=== PATIENT | male | born 1945 | race Two or more races ===

== ENCOUNTER 2023-07-19 22:01 | Inpatient (IN) | payer MEDICARE ==
[~2023-07-19] VITALS: Ht 162.6 cm; Wt 56.8 kg
[2023-07-19 23:08] VITALS: BP 137/92; TEMP 98.6; O2SAT 97
[2023-07-20] MEDS ORDERED: Z GUARD REMEDY 4 OZ OINT TP PRN (00:30)
[2023-07-20] MEDS ORDERED: ONDANSETRON HCL/PF 4 MG/2 ML VIAL IVP PRN (00:30)
[2023-07-20 00:44] VITALS: BP 137/92; TEMP 98.6; O2SAT 97
[2023-07-20] MEDS: IV NS 0.9% 1,000 ML IV PRN (00:54)
[2023-07-20] MEDS: MORPHINE SULFATE INJ 2 MG/ML DISP.SYRIN IV PRN (01:07)
[2023-07-20] MEDS ORDERED: ENAL10TA39 PO (01:22)
[2023-07-20] MEDS ORDERED: HYDR12.55 PO (01:22)
[2023-07-20 07:01] LABS: BASOPHILS # (AUTO) 0.1 K/uL (0.0-0.2); BASOPHILS % (AUTO) 1.1 % (0.0-2.0); EOSINOPHILS # (AUTO) 0.3 K/uL (0.0-0.7); EOSINOPHILS % (AUTO) 4.8 % (0.0-6.0); HEMATOCRIT 38 % (39-51); HEMOGLOBIN 13.3 g/dL (13.5-17.5); LYMPHOCYTES % (AUTO) 31.2 % (20.0-44.0); MEAN CORPUSCULAR HEMOGLOBIN 33 PG (26.0-33.0); MEAN CORPUSCULAR HGB CONC 35 g/dl (31.0-36.0); MEAN CORPUSCULAR VOLUME 95 fL (80-96); MONOCYTES # (AUTO) 0.6 K/uL (0.1-1.30); MONOCYTES % (AUTO) 9.7 % (2.0-12.0); NEUTROPHILS # (AUTO) 3.4 K/uL (1.8-8.9); NEUTROPHILS % (AUTO) 53.2 % (43.0-81.0); PLATELET COUNT (AUTO) 214 K/uL (150-450); RED BLOOD CELL COUNT(AUTO) 4.04 MIL/uL (4.5-6.0); RED CELL DISTRIBUTION WIDTH 13.8 % (11.5-15.0); WHITE BLOOD COUNT (AUTO) 6.3 K/uL (4.3-11.0)
[2023-07-20 07:05] LABS: INR 1.08 (0.91-1.10); PROTHROMBIN TIME 11.4 SECS (9.2-11.1)
[2023-07-20 07:30] VITALS: BP 120/70; TEMP 97.7; O2SAT 96
[2023-07-20 07:32] LABS: ALBUMIN 2.9 g/dL (3.4-5.0); BILIRUBIN,DIRECT 0.2 mg/dL (0.0-0.2); BILIRUBIN,TOTAL 0.7 mg/dL (0.2-1.0); CALCIUM, SERUM 8.7 mg/dL (8.5-10.1); CREATININE 1.1 mg/dL (0.6-1.3); MAGNESIUM 2.3 mg/dL (1.8-2.4); PHOSPHORUS 3.6 mg/dL (2.5-4.9); TOTAL PROTEIN, SERUM 6.2 g/dL (6.4-8.2)
[2023-07-20 07:49] LABS: THYROID STIMULATING HORMONE 2.038 uIU/mL (0.358-3.74)
[2023-07-20] MEDS: PANTOPRAZOLE 40 MG VIAL IV SCH (09:24)
[2023-07-20 16:00] VITALS: BP 160/80; TEMP 97.3; O2SAT 97
[2023-07-20] MEDS: SUCRALFATE 1 G/10 ML UDC PO SCH (16:32)
[2023-07-20] MEDS: HYDROCHLOROTHIAZIDE 25 MG TABLET PO SCH (17:10)
[2023-07-20] MEDS: LISINOPRIL (20MG) 20 MG TABLET PO SCH (17:10)
[2023-07-20 20:00] VITALS: BP 147/77; TEMP 98.1; O2SAT 96
[2023-07-20 20:10] VITALS: BP 147/85; TEMP 98.1; O2SAT 96
[2023-07-21 06:40] LABS: BASOPHILS # (AUTO) 0.1 K/uL (0.0-0.2); BASOPHILS % (AUTO) 1.8 % (0.0-2.0); EOSINOPHILS # (AUTO) 0.4 K/uL (0.0-0.7); EOSINOPHILS % (AUTO) 6.9 % (0.0-6.0); HEMATOCRIT 37 % (39-51); HEMOGLOBIN 12.9 g/dL (13.5-17.5); LYMPHOCYTES # (AUTO) 1.8 K/uL (0.8-4.8); MEAN CORPUSCULAR HEMOGLOBIN 33 PG (26.0-33.0); MEAN CORPUSCULAR HGB CONC 35 g/dl (31.0-36.0); MEAN CORPUSCULAR VOLUME 96 fL (80-96); MONOCYTES # (AUTO) 0.7 K/uL (0.1-1.30); MONOCYTES % (AUTO) 10.9 % (2.0-12.0); NEUTROPHILS % (AUTO) 50.4 % (43.0-81.0); PLATELET COUNT (AUTO) 200 K/uL (150-450); RED BLOOD CELL COUNT(AUTO) 3.88 MIL/uL (4.5-6.0); RED CELL DISTRIBUTION WIDTH 13.8 % (11.5-15.0)
[2023-07-21 07:13] LABS: IRON, SERUM 68 ug/dl (50-175); TOTAL IRON BINDING CAPACITY 186 ug/dl (250-450)
[2023-07-21 07:15] LABS: ALANINE AMINOTRANSFERASE 23 U/L (12-78); ALBUMIN 2.7 g/dL (3.4-5.0); ALKALINE PHOSPHATASE 84 U/L (46-116); ASPARTATE AMINOTRANSFERASE 17 U/L (15-37); BILIRUBIN,TOTAL 0.6 mg/dL (0.2-1.0); CALCIUM, SERUM 8.6 mg/dL (8.5-10.1); CARBON DIOXIDE 23 mmol/L (21-32); CHLORIDE 106 mmol/L (98-107); GLUCOSE 83 mg/dL (74-106); LIPASE 16 U/L (16-77); MAGNESIUM 2.1 mg/dL (1.8-2.4); PHOSPHORUS 3.1 mg/dL (2.5-4.9); POTASSIUM 3.7 mmol/L (3.5-5.1); SODIUM SERUM 139 mmol/L (136-145); UREA NITROGEN, BLOOD 19 mg/dL (7-18)
[2023-07-21 08:00] VITALS: BP 140/84; TEMP 97.7; O2SAT 98
[2023-07-21] MEDS: METOCLOPRAMIDE HCL 10 MG TABLET PO SCH (09:07)
[2023-07-21] MEDS: PANTOPRAZOLE 40 MG TABLET.DR PO SCH (09:07)
[2023-07-21] MEDS ORDERED: PANT40TA2 PO (11:47)
[2023-07-21] MEDS: DICYCLOMINE HCL 10 MG CAPSULE PO SCH (12:17)
[2023-07-21 15:58] VITALS: BP 123/77; TEMP 98; O2SAT 96
== END 2023-07-21 15:30 | disposition home or self-care (01) | DRG 392 ==
LOC: MED 23:02
PROVIDERS: ADMIT Nurse Practitioner Family; ATTEND Nurse Practitioner Acute Care
DX: K29.70 Gastritis, unspecified, without bleeding (principal); E86.0 Dehydration; K57.30 Diverticulosis of large intestine without perforation or abscess without bleeding; Z90.49 Acquired absence of other specified parts of digestive tract; Z87.19 Personal history of other diseases of the digestive system; N40.0 Benign prostatic hyperplasia without lower urinary tract symptoms; M43.17 Spondylolisthesis, lumbosacral region; K40.90 Unilateral inguinal hernia, without obstruction or gangrene, not specified as recurrent; R91.1 Solitary pulmonary nodule; J98.4 Other disorders of lung
CPT/HCPCS: 36415; 80048-TC; 80053-TC; 80076-TC; 83540-TC; 83690-TC; 83735-TC; 84100-TC; 84443-TC; 85025-TC; 85610-TC; 87081-TC; A4223; C9113; G0378; J2270; J7030; J8597